=== PATIENT | female | born 1995 | race Hispanic/Latino ===

== ENCOUNTER 2021-06-12 17:11 | Observation (INO) | payer MEDICAID ==
[~2021-06-12] VITALS: Ht 154.9 cm; Wt 88.9 kg
[2021-06-12 17:12] VITALS: BP 122/92
[2021-06-12] MEDS ORDERED: LACTATED RINGERS 1000ML 1,000 ML IV SCH (18:00)
[2021-06-12 18:03] LABS: APPEARANCE,URINE Cloudy (CLEAR); BILIRUBIN,URINE Negative (NEGATIVE); COLOR,URINE Yellow (YELLOW); GLUCOSE, URINE (UA) Negative (NEGATIVE); KETONES,URINE Negative (NEGATIVE); LEUKOCYTE ESTERASE ,URINE Small (NEGATIVE); NITRATE,URINE Negative (NEGATIVE); OCCULT BLOOD,URINE Negative (NEGATIVE); PROTEIN,URINE Negative (NEGATIVE)
[2021-06-12] MEDS ORDERED: LACTATED RINGERS 1000ML 1,000 ML IV ONE (18:34)
[2021-06-12 18:40] LABS: BACTERIA,URINE Rare /HPF (None Seen); RBC,URINE 0-1 /HPF (0-1); SQUAMOUS EPITHELIAL CELL,UR Rare /HPF (0-2); WBC,URINE 0-1 /HPF (0-1)
[2021-06-12] MEDS ORDERED: GUAIFENESIN-CODEINE 5 ML SYRUP PO ONE (19:00)
== END 2021-06-12 21:37 | disposition home or self-care (01) ==
LOC: EDH 17:11 → LDH 17:12
PROVIDERS: ADMIT Specialist; ATTEND Specialist
DX: O26.899 Other specified pregnancy related conditions, unspecified trimester (principal); R05.9 Cough, unspecified; Z20.822 Contact with and (suspected) exposure to COVID-19; R09.81 Nasal congestion; R51.9 Headache, unspecified; R10.2 Pelvic and perineal pain; Z3A.00 Weeks of gestation of pregnancy not specified
CPT/HCPCS: 81001; 87635; 87804 ×2; 96360; 96361; G0378 ×4; G0379; J7120 ×2

== ENCOUNTER 2021-06-25 09:18 | Observation (INO) | payer MEDICAID ==
[~2021-06-25] VITALS: Ht 154.9 cm; Wt 88.5 kg
[2021-06-25 10:17] LABS: APPEARANCE,URINE CLOUDY (CLEAR); BILIRUBIN,URINE NEGATIVE (NEGATIVE); COLOR,URINE YELLOW (YELLOW); GLUCOSE, URINE (UA) NEGATIVE (NEGATIVE); KETONES,URINE 5 mg/dL (NEGATIVE); LEUKOCYTE ESTERASE ,URINE SMALL (NEGATIVE); NITRATE,URINE POSITIVE (NEGATIVE); OCCULT BLOOD,URINE SMALL (NEGATIVE); PROTEIN,URINE TRACE mg/dL (NEGATIVE); UROBILINOGEN,URINE 0.2 mg/dL (0.2-1.0)
[2021-06-25 10:25] LABS: AMPHET/METH SCREEN,URINE NEGATIVE (NEGATIVE); BARBITURATE SCREEN, URINE NEGATIVE (NEGATIVE); BENZODIAZEPINES SCREEN,URINE NEGATIVE (NEGATIVE); CANNABINOID SCREEN,URINE NEGATIVE (NEGATIVE); COCAINE SCREEN,URINE NEGATIVE (NEGATIVE); OPIATE SCREEN,URINE NEGATIVE (NEGATIVE); PHENCYCLIDINE SCREEN,URINE NEGATIVE (NEGATIVE)
[2021-06-25 10:47] LABS: BACTERIA,URINE Moderate /HPF (None Seen); MUCUS,URINE Many LPF (None Seen); RBC,URINE 0-1 /HPF (0-1); SQUAMOUS EPITHELIAL CELL,UR Many /HPF (0-2)
[2021-06-25] MEDS ORDERED: PROMETHAZINE HCL 25 MG/ML 1ML AMPULE IM PRN (11:00)
[2021-06-25] MEDS: LACTATED RINGERS 1000ML 1,000 ML IV SCH ×2 (11:58→16:14)
[2021-06-25] MEDS: CEFAZOLIN SODIUM 1 GM VIAL IVP SCH ×2 (11:58→20:19)
[2021-06-25] MEDS: ACETAMINOPHEN 325 MG TAB PO PRN ×3 (11:59→23:54)
[2021-06-25 12:19] LABS: BASOPHILS % (AUTO) 0.1 % (0.0-5.0); EOSINOPHILS % (AUTO) 0.1 % (0.0-8.0); HEMATOCRIT 24.3 % (36-48); LYMPHOCYTES % (AUTO) 5.9 % (21.0-51.0); MEAN CORPUSCULAR HEMOGLOBIN 19.9 pg (27.0-33.0); MEAN CORPUSCULAR HGB CONC 29.6 g/dL (32.0-36.0); MEAN CORPUSCULAR VOLUME 67.3 fL (79-99); MONOCYTES % (AUTO) 10.2 % (3.0-13.0); NEUTROPHILS % (AUTO) 82.7 % (40.0-77.0); PLATELET COUNT (AUTO) 222 K/uL (130-400); RED BLOOD CELL COUNT(AUTO) 3.61 MIL/uL (4.00-5.50); RED CELL DISTRIBUTION WIDTH 15.6 % (11.0-15.5); WHITE BLOOD COUNT (AUTO) 7.8 K/uL (4.8-10.8)
[2021-06-25 12:20] VITALS: BP 112/57
[2021-06-25 12:47] LABS: CREATININE 0.4 mg/dL (0.5-1.5)
[2021-06-25 12:51] LABS: ALBUMIN 2.9 g/dL (3.5-5.0); BILIRUBIN,TOTAL 0.2 mg/dL (0.2-1.0); TOTAL PROTEIN, SERUM 6.8 g/dL (6.0-8.3)
[2021-06-25 15:45] VITALS: BP 100/55
[2021-06-25] MEDS ORDERED: PREN1COM14 PO (17:00)
[2021-06-25] MEDS ORDERED: IRON18TA PO (17:00)
[2021-06-25 20:20] VITALS: BP 116/63
[2021-06-26 00:03] VITALS: BP 107/64
[2021-06-26] MEDS: LACTATED RINGERS 1000ML 1,000 ML IV SCH ×3 (00:09→23:02)
[2021-06-26 03:41] VITALS: BP 103/51
[2021-06-26] MEDS: CEFAZOLIN SODIUM 1 GM VIAL IVP SCH ×3 (03:59→19:36)
[2021-06-26 06:47] LABS: BASOPHILS % (AUTO) 0.1 % (0.0-5.0); EOSINOPHILS % (AUTO) 0.1 % (0.0-8.0); HEMATOCRIT 21.6 % (36-48); LYMPHOCYTES % (AUTO) 17.9 % (21.0-51.0); MEAN CORPUSCULAR HEMOGLOBIN 19.8 pg (27.0-33.0); MEAN CORPUSCULAR HGB CONC 28.7 g/dL (32.0-36.0); MONOCYTES % (AUTO) 10.2 % (3.0-13.0); NEUTROPHILS % (AUTO) 70.7 % (40.0-77.0); PLATELET COUNT (AUTO) 209 K/uL (130-400); RED BLOOD CELL COUNT(AUTO) 3.13 MIL/uL (4.00-5.50); RED CELL DISTRIBUTION WIDTH 15.9 % (11.0-15.5); WHITE BLOOD COUNT (AUTO) 6.8 K/uL (4.8-10.8)
[2021-06-26 07:17] LABS: HEPATITIS Bs ANTIGEN SCREEN P Negative (Negative)
[2021-06-26 08:30] VITALS: BP 85/53
[2021-06-26] MEDS: ACETAMINOPHEN 325 MG TAB PO PRN ×2 (11:51→23:14)
[2021-06-26 15:50] VITALS: BP 103/60
[2021-06-26 21:15] VITALS: BP 102/60
[2021-06-26] MEDS: GUAIFENESIN-DM 200/20 MG 10 ML PO PRN (23:02)
[2021-06-26 23:14] VITALS: BP 116/70
[2021-06-27] MEDS: CEFAZOLIN SODIUM 1 GM VIAL IVP SCH ×2 (03:22→11:21)
[2021-06-27 04:00] VITALS: BP 102/53
[2021-06-27] MEDS: GUAIFENESIN-DM 200/20 MG 10 ML PO PRN (04:03)
[2021-06-27] MEDS: LACTATED RINGERS 1000ML 1,000 ML IV SCH (06:38)
[2021-06-27 06:58] LABS: MEAN CORPUSCULAR HEMOGLOBIN 21.6 pg (27.0-33.0); MEAN CORPUSCULAR HGB CONC 30.4 g/dL (32.0-36.0); RED BLOOD CELL COUNT(AUTO) 3.38 MIL/uL (4.00-5.50); RED CELL DISTRIBUTION WIDTH 18.8 % (11.0-15.5); WHITE BLOOD COUNT (AUTO) 5.7 K/uL (4.8-10.8)
[2021-06-27 08:00] VITALS: BP 93/45
[2021-06-27 11:58] VITALS: BP 88/60
[2021-06-27] MEDS ORDERED: NITR100C4 PO (15:20)
[2021-06-27 15:40] VITALS: BP 91/58
== END 2021-06-27 16:15 | disposition home or self-care (01) ==
LOC: EDH 09:18 → LDH 09:30 → WSH 12:12
PROVIDERS: ADMIT Obstetrics & Gynecology; ATTEND Obstetrics & Gynecology
DX: O98.513 Other viral diseases complicating pregnancy, third trimester (principal); U07.1 COVID-19; O23.03 Infections of kidney in pregnancy, third trimester; N12 Tubulo-interstitial nephritis, not specified as acute or chronic; O99.891 Other specified diseases and conditions complicating pregnancy; M54.9 Dorsalgia, unspecified; O99.013 Anemia complicating pregnancy, third trimester; D64.9 Anemia, unspecified; O26.893 Other specified pregnancy related conditions, third trimester; R50.9 Fever, unspecified; Z3A.30 30 weeks gestation of pregnancy; Z79.899 Other long term (current) drug therapy; Z98.890 Other specified postprocedural states
CPT/HCPCS: 36415 ×3; 36430; 80053; 80305; 81001; 85025 ×2; 85027; 86592; 86850; 86900; 86901; 86923 ×2; 87088; 87340; 87635; 87804 ×2; 96361 ×4; 96372; 96374; 96376 ×3; G0378 ×49; J0690 ×7; J2550; J7030; J7120 ×4; P9016 ×2; 96360

== ENCOUNTER 2021-08-06 16:40 | Observation (INO) | payer MEDICAID ==
[~2021-08-06] VITALS: Ht 154.9 cm; Wt 95.7 kg
[~2021-08-06 16:40] MED LIST: IRON18TA PO; NITR100C4 PO; PREN1COM14 PO
[2021-08-06 16:41] VITALS: BP 128/73
[2021-08-06 17:41] LABS: APPEARANCE,URINE CLOUDY (CLEAR); BILIRUBIN,URINE NEGATIVE (NEGATIVE); COLOR,URINE YELLOW (YELLOW); GLUCOSE, URINE (UA) NEGATIVE (NEGATIVE); KETONES,URINE NEGATIVE (NEGATIVE); LEUKOCYTE ESTERASE ,URINE LARGE (NEGATIVE); NITRATE,URINE NEGATIVE (NEGATIVE); OCCULT BLOOD,URINE NEGATIVE (NEGATIVE); PROTEIN,URINE NEGATIVE (NEGATIVE); UROBILINOGEN,URINE 0.2 mg/dL (0.2-1.0)
[2021-08-06 17:47] LABS: BACTERIA,URINE Few /HPF (None Seen); RBC,URINE 0-1 /HPF (0-1); SQUAMOUS EPITHELIAL CELL,UR Moderate /HPF (0-2)
[2021-08-06] MEDS ORDERED: LACTATED RINGERS 1000ML 1,000 ML IV SCH (20:30)
== END 2021-08-06 21:05 | disposition home or self-care (01) ==
LOC: EDH 16:46 → LDH 16:57
PROVIDERS: ADMIT Obstetrics & Gynecology; ATTEND Obstetrics & Gynecology
DX: O62.9 Abnormality of forces of labor, unspecified (principal); O23.43 Unspecified infection of urinary tract in pregnancy, third trimester; Z3A.36 36 weeks gestation of pregnancy
CPT/HCPCS: 76819; 81001; 87088; 96360; G0378 ×4; G0379; J7120

== ENCOUNTER 2021-08-15 01:05 | Observation (INO) | payer MEDICAID ==
[~2021-08-15] VITALS: Ht 154.9 cm; Wt 98.0 kg
[2021-08-15 01:07] VITALS: BP 94/36
[2021-08-15 01:42] LABS: APPEARANCE,URINE CLEAR (CLEAR); BILIRUBIN,URINE NEGATIVE (NEGATIVE); COLOR,URINE YELLOW (YELLOW); GLUCOSE, URINE (UA) NEGATIVE (NEGATIVE); KETONES,URINE NEGATIVE (NEGATIVE); LEUKOCYTE ESTERASE ,URINE NEGATIVE (NEGATIVE); NITRATE,URINE NEGATIVE (NEGATIVE); OCCULT BLOOD,URINE NEGATIVE (NEGATIVE); PROTEIN,URINE NEGATIVE (NEGATIVE); UROBILINOGEN,URINE 0.2 mg/dL (0.2-1.0)
== END 2021-08-15 02:25 | disposition home or self-care (01) ==
LOC: EDH 01:05 → LDH 01:06
PROVIDERS: ADMIT Obstetrics & Gynecology; ATTEND Obstetrics & Gynecology
DX: O26.893 Other specified pregnancy related conditions, third trimester (principal); R10.2 Pelvic and perineal pain; O99.891 Other specified diseases and conditions complicating pregnancy; M54.9 Dorsalgia, unspecified; Z3A.37 37 weeks gestation of pregnancy
CPT/HCPCS: 81003; G0378; G0379